=== PATIENT | male | born 1990 | race Caucasian/White ===

== ENCOUNTER 2016-10-22 21:23 | Emergency (ER) | payer SELFPAY ==
[~2016-10-22] VITALS: Ht 177.8 cm; Wt 60.3 kg
[2016-10-22 21:31] VITALS: BP 134/83
[2016-10-22] MEDS ORDERED: BACITRACIN ZINC OINT 500U/GM, 0.9 GM ONE (21:49)
== END 2016-10-22 22:13 | disposition home or self-care (01) ==
LOC: ED 22:07
DX: S61.011A Laceration without foreign body of right thumb without damage to nail, initial encounter (principal); X58.XXXA Exposure to other specified factors, initial encounter; Y93.89 Activity, other specified; Y92.488 Other paved roadways as the place of occurrence of the external cause; Y99.8 Other external cause status
CPT/HCPCS: 12001; 99283

== ENCOUNTER 2016-11-18 16:22 | Emergency (ER) | payer OTHER ==
[~2016-11-18] VITALS: Ht 177.8 cm; Wt 60.6 kg
[2016-11-18 16:25] VITALS: BP 128/84
[2016-11-18] MEDS ORDERED: HYDROcodone/APAP 5/325 TABLET PO ONE (17:30)
[2016-11-18 17:31] LABS: DAU SCREEN DISCLAIMER
[2016-11-18 17:35] LABS: BLOOD UREA NITROGEN 17 mg/dL (7-18)
[2016-11-18 17:39] LABS: ACETAMINOPHEN < 2 mcg/mL (10-30)
[2016-11-18] MEDS ORDERED: HYDROcodone/APAP 5/325 TABLET ONE (17:44)
[2016-11-18] MEDS ORDERED: IBUPROFEN 200 MG TABLET ONE (17:45)
[2016-11-18] MEDS ORDERED: IBUPROFEN 200 MG TABLET PO ONE (18:00)
[2016-11-18] MEDS ORDERED: AMOXICILLIN/CLAV 875-125MG TABLET PO ONE (18:00)
== END 2016-11-18 20:01 | disposition home or self-care (01) ==
LOC: ED 17:33
DX: F32.9 Major depressive disorder, single episode, unspecified (principal)
CPT/HCPCS: 36415; 80048; 80307; 80329; 82040; 85025; 99284; G0480